=== PATIENT | female | born 2000 | race Caucasian/White ===

== ENCOUNTER 2022-02-09 08:56 | Inpatient (IN) | payer OTHER ==
[~2022-02-09] VITALS: Ht 160 cm; Wt 55.3 kg
== END 2022-02-13 15:30 | disposition home or self-care (01) | DRG 807 ==
LOC: OB/GYN 08:56 → LDR 08:56 → OB/GYN 02-10 03:58
PROVIDERS: ADMIT Obstetrics & Gynecology Obstetrics; ATTEND Obstetrics & Gynecology Obstetrics
PROC: 4A1HXCZ Monitoring of Products of Conception, Cardiac Rate, External Approach (ICD-10-PCS; 2022-02-09)
PROC: 10E0XZZ Delivery of Products of Conception, External Approach (ICD-10-PCS; principal; 2022-02-10)
DX: O80 Encounter for full-term uncomplicated delivery (principal); Z37.0 Single live birth; Z3A.38 38 weeks gestation of pregnancy; Z20.822 Contact with and (suspected) exposure to COVID-19